=== PATIENT | female | born 2000 | race African-American/Black ===

== ENCOUNTER 2018-02-11 14:34 | Inpatient (IN) | payer BC ==
[~2018-02-11] VITALS: Ht 162.6 cm; Wt 60.0 kg
[~2018-02-11 14:34] MED LIST: NOHOMEMEDICATIONS
[2018-02-11 14:35] VITALS: BP 137/92
[2018-02-11 14:55] LABS: HEMATOCRIT 39.8 % (37.0-47.0); HEMOGLOBIN 12.9 gm/dL (12.0-15.0); MCH 26.8 pg (26.0-34.0); MCHC 32.5 g/dL (28.0-37.0); MCV 82.5 fL (80.0-100.0); MPV 9.5 fl. (7.2-11.1); RBC 4.82 mil/uL (4.20-5.00); RDW-CV 14.9 % (10.5-14.5); WBC 12.4 thou/uL (4.0-11.0)
[2018-02-11 15:02] LABS: CALCIUM 9.4 mg/dL (8.5-10.1); CREATININE 0.9 mg/dL (0.6-1.3); POTASSIUM 3.7 mmol/L (3.5-5.1)
[2018-02-11 15:12] LABS: ALBUMIN 4.3 g/dL (3.4-5.0); TOTAL BILIRUBIN 1.1 mg/dL (<0.1-1.0); TOTAL PROTEIN 8.4 g/dL (6.4-8.2)
[2018-02-11 15:14] LABS: ACETAMINOPHEN 37 ug/mL (10-30); ALCOHOL < 10 mg/dL (<10); SALICYLATE < 2.8 mg/dL (2.8-20.0)
[2018-02-11 15:50] LABS: URINE BILIRUBIN NEGATIVE (Negative); URINE BLOOD NEGATIVE (Negative); URINE CLARITY CLEAR; URINE COLOR YELLOW; URINE GLUCOSE-RANDOM NEGATIVE (Negative); URINE KETONES NEGATIVE (Negative); URINE LEUKOCYTES NEGATIVE (Negative); URINE NITRITE NEGATIVE (Negative); URINE PROTEIN NEGATIVE (Negative); URINE SPECIFIC GRAVITY >= 1.030 (1.005-1.030); URINE UROBILINOGEN 0.2 E.U./dl (0.2-1.0)
[2018-02-11 15:57] LABS: AMP/METHAMP Negative (Negative); BARBITURATES Negative (Negative); BENZODIAZEPINES Negative (Negative); COCAINE Negative (Negative); METHADONE Negative (Negative); OPIATES Negative (Negative); PCP Negative (Negative); THC POSITIVE (Negative)
[2018-02-11 16:50] VITALS: BP 120/83
[2018-02-11 16:55] VITALS: BP 114/78
[2018-02-11 19:19] LABS: ACETAMINOPHEN 13 ug/mL (10-30); SALICYLATE < 2.8 mg/dL (2.8-20.0)
[2018-02-11 19:45] VITALS: BP 102/64
[2018-02-11 22:00] VITALS: BP 106/64; BP 96/59
[2018-02-12] VITALS: BP 102/66
[2018-02-12 02:00] VITALS: BP 104/69
[2018-02-12 08:00] VITALS: BP 106/58
--- NOTE | 2018-02-12 09:52 | EKG ---
[place] [address] ELECTROCARDIOGRAM REPORT Name: DAVID SOLIMANIS Room: [address] ADM IN .R.#: [id number] Admission: 02/11/18 Attend Phys: Ryan Ryan Discharge: Date of : [birth year] Report #: [id number] THIS REPORT FOR: //name// [facility] ED Test Date: 2018-02-11 Test Time: 14:39:21 Pat Name: MARLIN SOLIMAN Department: Room: [address] Gender: F Bilingual Instructor: Zeke WALDROP : 2000 Requested By: Kandis Bran Order Number: [id number] Luis A MD: Alan Nguyen Measurements Intervals [place] Rate: 164 P: 105 [place]: 163 QRS: 144 QRSD: 80 T: 44 QT: 278 QTc: 460 Interpretive Statements Sinus tachycardia LAE, consider biatrial enlargement Right axis deviation late transition Compared to ECG 01/25/2015 09:54:25 Sinus rhythm no longer present Electronically Signed On 02-12-2018 9:52:05 CDT by Alan Nguyen [email or web address] <ELECTRONICALLY SIGNED> By: Alan Nguyen MD, FAC 02/12/18 0952 [id number] Alan Nguyen MD, [facility] /EPI
--- NOTE | 2018-02-12 09:53 | EKG ---
[place] [address] ELECTROCARDIOGRAM REPORT Name: SOLIMANMARLIN Room: [address] IN [facility]#: [id number] Admission: 02/11/18 Attend Phys: Ryan Ryan Discharge: Date of : [birth year] Report #: [id number] THIS REPORT FOR: //name// [facility] Test Date: 2018-02-11 Test Time: 18:35:27 Pat Name: MARLIN SOLIMAN Department: Room: Gender: Temperature Regulator Pyrometer: [facility] : 2000 Requested By: Kandis Bran Order Number: [id number] MD: Alan Nguyen Measurements Intervals [place] Rate: 96 P: 46 [place]: 188 QRS: 56 QRSD: 79 T: 25 QT: 337 QTc: 426 Interpretive Statements Sinus rhythm Compared to ECG 01/25/2015 09:54:25 rate slowed Electronically Signed On 02-12-2018 9:53:23 CDT by Alan Nguyen [email or web address] <ELECTRONICALLY SIGNED> By: Alan Nguyen MD, [facility] 02/12/18 0953 [id number] 34 Alan Nguyen MD, FACC /EPI
[2018-02-12 10:00] VITALS: BP 102/69
[2018-02-12 12:00] VITALS: BP 112/79
[2018-02-12 13:45] LABS: ALBUMIN 2.9 g/dL (3.4-5.0); CALCIUM 8.2 mg/dL (8.5-10.1); CREATININE 0.7 mg/dL (0.6-1.3); TOTAL BILIRUBIN 0.3 mg/dL (<0.1-1.0); TOTAL PROTEIN 6.7 g/dL (6.4-8.2)
[2018-02-12 15:55] VITALS: BP 96/62
== END 2018-02-12 17:06 | DRG 918 ==
LOC: M.ERS 14:34 → M.TBA-ER 16:02 → M.ICU 16:02
PROVIDERS: Internal Medicine; Personal Emergency Response Attendant; ADMIT Internal Medicine
DX: T39.312A Poisoning by propionic acid derivatives, intentional self-harm, initial encounter (principal); T39.1X2A Poisoning by 4-Aminophenol derivatives, intentional self-harm, initial encounter; T39.012A Poisoning by aspirin, intentional self-harm, initial encounter; T45.0X2A Poisoning by antiallergic and antiemetic drugs, intentional self-harm, initial encounter; K29.00 Acute gastritis without bleeding; R51 Headache; I45.81 Long QT syndrome; Y92.89 Other specified places as the place of occurrence of the external cause